=== PATIENT | female | born 1950 | race Caucasian/White ===

== ENCOUNTER 2017-09-27 16:13 | Outpatient (CLI) | payer OTHER, MEDICARE ==
--- NOTE | 2017-09-28 09:03 | XRAY Report ---
THREE VIEW LUMBAR SPINE: 09/27/2017 CLINICAL INDICATION: Low back pain. FINDINGS: AP, lateral, coned down views of the lumbar spine demonstrate normal height and alignment of the vertebral bodies. The disk spaces are preserved. There is no evidence of fracture. The bowel gas pattern is normal. Surgical changes of cholecystectomy are noted. IMPRESSION: NORMAL LUMBAR SPINE. TD: 09/28/2017 09:02
== END 2017-09-27 16:14 | disposition home or self-care (01) ==
LOC: DI.N 16:13
PROVIDERS: ATTEND Internal Medicine
DX: M54.5 Low back pain (principal)
CPT/HCPCS: 72100

== ENCOUNTER 2017-11-08 10:06 | Outpatient (CLI) | payer OTHER, MEDICARE ==
--- NOTE | 2017-11-08 11:22 | XRAY Report ---
TWO VIEW CHEST: 11/08/2017 CLINICAL INDICATION: Bronchitis. COMPARISON: 11/18/2014. FINDINGS: Frontal and lateral views of the chest demonstrate a normal cardiac silhouette. The lungs are clear. No effusion or pneumothorax is present. IMPRESSION: NORMAL CHEST. TD: 11/08/2017 11:21
== END 2017-11-08 10:07 | disposition home or self-care (01) ==
LOC: DI.N 10:06
PROVIDERS: ATTEND Family Medicine
DX: J40 Bronchitis, not specified as acute or chronic (principal)
CPT/HCPCS: 71046

== ENCOUNTER 2020-01-17 17:13 | Outpatient (CLI) | payer MEDICARE, OTHER ==
--- NOTE | 2020-01-18 09:06 | XRAY Report ---
PROCEDURE: Shoulder 3 View LT INDICATIONS: Osteoarthritis TECHNIQUE: 3 views of the shoulder were acquired. COMPARISON: None. FINDINGS: Bones: No fractures or dislocations. No suspicious bony lesions. Visualized ribs appear intact. Mo derate degenerative changes of the acromioclavicular and glenohumeral joints with prominent inferior glenohumeral osteophyte. Soft tissues: No suspicious soft tissue calcifications. IMPRESSION: Left shoulder without acute radiographic abnormalities. Degenerative changes of the left acromioclavicular and glenohumeral joints. Reviewed by: Howard Walters MD on 01/18/2020 9:04 AM PDT Approved by: Howard Walters MD on 01/18/2020 9:04 AM PDT Station ID: [id number]
--- NOTE | 2020-01-18 09:08 | XRAY Report ---
PROCEDURE: Knee 3 View LT INDICATIONS: OSTEOARTHRITIS TECHNIQUE: 3 views of the left knee(s) were acquired. COMPARISON: None. FINDINGS: Bones: No fractures or dislocations. No suspicious bony lesions. Mild tricompartmental osteoarthro sis of the left knee. No significant joint space loss visualized. Soft tissues: No joint effusion. No suspicious soft tissue calcifications. IMPRESSION: Left knee without acute radiographic abnormalities. Mild tricompartmental osteoarthritis of the left knee. Reviewed by: Howard Walters MD on 01/18/2020 9:06 AM PDT Approved by: Howard Walters MD on 01/18/2020 9:06 AM PDT Station ID: [id number]
== END 2020-01-17 17:14 | disposition home or self-care (01) ==
LOC: DI 17:13
PROVIDERS: ATTEND Internal Medicine
DX: M19.012 Primary osteoarthritis, left shoulder (principal); M17.12 Unilateral primary osteoarthritis, left knee

== ENCOUNTER 2020-06-25 13:39 | Outpatient (CLI) | payer MEDICARE, OTHER ==
--- NOTE | 2020-06-25 14:37 | DEXA Report ---
PROCEDURE: Dexa Spine and/or Hip INDICATIONS: DISORDER OF BONE DENSITY TECHNIQUE: Dual energy x-ray absorptiometry (DXA) was performed on a [employer] System. Regions measur ed are the AP Spine, femoral neck, and if needed forearm. COMPARISON: None. FINDINGS: Lumbar Spine: Bone Mineral Density 1.090 g/cm/cm,T score -0.8 Hip: Bone Mineral Density 0.982 g/cm/cm,T score -0.2 Femoral Neck: Bone Mineral Density 0.841 g/cm/cm, T score -1.4 (T score greater or equal to -1.0: NORMAL) (T score from -1.1 to -2.4: OSTEOPENIA) (T score less than or equal to -2.5 to: OSTEOPOROSIS) Impression: Based on WHO criteria, the patient is osteopenic. Compared with the last exam dated 07/04, there is no significant change. Patients with diagnosis of osteoporosis or osteopenia should have regular bone mineral density assess ment. For those eligible for Medicare, routine testing is allowed once every 2 years. Testing frequ ency can be increased for patients who have rapidly progressing disease or for those who are receivin g medical therapy to restore bone mass. Reviewed by: Suellen Winter MD on 06/25/2020 2:36 PM PST Approved by: Suellen Winter MD on 06/25/2020 2:36 PM PST Station ID: [id number]
== END 2020-06-25 13:40 | disposition home or self-care (01) ==
LOC: DI 13:39
PROVIDERS: ATTEND Internal Medicine
DX: M85.88 Other specified disorders of bone density and structure, other site (principal)

== ENCOUNTER 2020-07-01 15:08 | Outpatient (CLI) | payer MEDICARE, OTHER ==
--- NOTE | 2020-07-02 09:06 | Mammography Report ---
BILATERAL DIGITAL SCREENING MAMMOGRAM 3D/2D: 07/01/2020 CLINICAL: Family history of breast cancer. Routine screening. Comparison is made to exams dated: 07/19/2016 mammogram and 06/05/2014 mammogram - [facility]. There are scattered fibroglandular elements in both breasts. There is a benign calcification in the left breast. No significant masses, calcifications, or other findings are seen in either breast. There has been no significant interval change. IMPRESSION: BENIGN There is no mammographic evidence of malignancy. A 1 year screening mammogram is recommended. This exam was interpreted at Station ID: [id number]. NOTE: For mammograms, a report in lay terms will be sent to the patient. Approximately 15% of breast malignancies will not be visualized mammographically. In the management of a palpable breast mass, a negative mammogram must not discourage biopsy of a clinically suspicious lesion. Electronically Signed By: Ana yanez/constance:07/01/2020 18:00:30 ACR BI-RADS Category 2: Benign Finding(s) 3342F PARENCHYMAL PATTERN: (A) - The breast(s) demonstrate(s) scattered fibroglandular densities. BI-RADS CATEGORY: (2) - 2 RECOMMENDATION: (ANNUAL) - Recommend routine annual screening mammography. [id number] 1 year screening LATERALITY: (B)
== END 2020-07-01 15:09 | disposition home or self-care (01) ==
LOC: DI.N 15:08
PROVIDERS: ATTEND Internal Medicine
DX: Z12.31 Encounter for screening mammogram for malignant neoplasm of breast (principal); Z80.3 Family history of malignant neoplasm of breast

== ENCOUNTER 2021-10-01 14:02 | Outpatient (CLI) | payer MEDICARE, OTHER ==
--- NOTE | 2021-10-01 15:52 | XRAY Report ---
PROCEDURE: Hip w/Pelvis 2-3V LT INDICATIONS: LEFT HIP PAIN TECHNIQUE: AP pelvis with lateral view(s) of the left hip(s). COMPARISON: None. FINDINGS: Bones: No fractures or dislocations. Mild to moderate bilateral hip joint osteoarthritic changes are seen. No evidence of avascular necrosis of femoral head. Pelvic ring appears intact. No suspicious bony lesions. Soft tissues: The visualized bowel gas pattern is normal. No suspicious soft tissue calcifications. IMPRESSION: Symmetric appearing mild to moderate bilateral hip joint osteoarthritis. No hip fracture or dislocation. No evidence of avascular necrosis. Reviewed by: Tyson Jo MD on 10/01/2021 3:51 PM PST Approved by: Tyson Jo MD on 10/01/2021 3:51 PM PST Station ID: [id number]
== END 2021-10-01 14:03 | disposition home or self-care (01) ==
LOC: DI.N 14:02
PROVIDERS: ATTEND Internal Medicine
DX: M16.0 Bilateral primary osteoarthritis of hip (principal)

== ENCOUNTER 2022-08-03 09:05 | Outpatient (CLI) | payer MEDICARE, OTHER ==
--- NOTE | 2022-08-03 10:01 | DEXA Report ---
PROCEDURE: Dexa Spine and/or Hip INDICATIONS: POST MENOPAUSAL TECHNIQUE: Dual energy x-ray absorptiometry (DXA) was performed on a [employer] System. Regions measur ed are the AP Spine, femoral neck, and if needed forearm. COMPARISON: DEXA, 06/25/2020.. FINDINGS: Lumbar Spine: Bone Mineral Density 1.055 g/cm/cm,T score -1.0, osteopenia. Left Femoral Neck: Bone Mineral Density 0.822 g/cm/cm, T score -1.6, osteopenia. Left Hip: Bone Mineral Density 0.956 g/cm/cm,T score -0.4, normal. (T score greater or equal to -1.0: NORMAL) (T score from -1.1 to -2.4: OSTEOPENIA) (T score less than or equal to -2.5 to: OSTEOPOROSIS) Impression: 1. Based on WHO criteria, the patient has osteopenia. 2. Compared to the last exam dated 06/25/2020, the patient's bone mineral density in lumbar spine has decreased by 3.2%. Her bone mineral density in left hip is not significantly changed. Patients with diagnosis of osteoporosis or osteopenia should have regular bone mineral density assess ment. For those eligible for Medicare, routine testing is allowed once every 2 years. Testing frequ ency can be increased for patients who have rapidly progressing disease or for those who are receivin g medical therapy to restore bone mass. Reviewed by: Suellen Winter MD on 08/03/2022 10:00 AM [facility] Approved by: Suellen Winter MD on 08/03/2022 10:00 AM PST Station ID: [id number]
== END 2022-08-03 09:06 | disposition home or self-care (01) ==
LOC: DI 09:05
PROVIDERS: ATTEND Internal Medicine
DX: M85.89 Other specified disorders of bone density and structure, multiple sites (principal)

== ENCOUNTER 2022-08-03 09:05 | Outpatient (CLI) | payer MEDICARE, OTHER ==
--- NOTE | 2022-08-04 10:35 | Mammography Report ---
BILATERAL DIGITAL SCREENING MAMMOGRAM 3D/2D: 08/03/2022 CLINICAL: Routine screening. Family history of breast cancer. Comparison is made to exams dated: 07/01/2020 mammogram, 07/19/2016 mammogram, and 06/05/2014 mammogr am - [facility]. There are scattered areas of fibroglandular density in both breasts (category b / 25%-50% glandular t issue). There is a benign calcification in the left breast. No significant masses, calcifications, or other findings are seen in either breast. There has been no significant interval change. IMPRESSION: BENIGN There is no mammographic evidence of malignancy. A 1 year screening mammogram is recommended. Based on the Tyrer Cuzick model (a risk assessment model) the patients lifetime risk is 7.1% and her 10 year risk is 4.5%. According to the ACR, ACS, and NCCN guidelines, an annual breast MRI exam reina g with mammogram is recommended if the patients lifetime risk is 20% or greater. This exam was interpreted at Station ID: [id number]. NOTE: For mammograms, a report in lay terms will be sent to the patient. Approximately 15% of breast malignancies will not be visualized mammographically. In the management of a palpable breast mass, a negative mammogram must not discourage biopsy of a clinically suspicious lesion. Electronically Signed By: Howard cordoba/constance:08/03/2022 10:08:06 ACR BI-RADS Category 2: Benign Finding(s) 3342F PARENCHYMAL PATTERN: (A) - The breast(s) demonstrate(s) scattered fibroglandular densities. BI-RADS CATEGORY: (2) - 2 RECOMMENDATION: (ANNUAL) - Recommend routine annual screening mammography. [id number] 1 year screening LATERALITY: (B)
== END 2022-08-03 09:06 | disposition home or self-care (01) ==
LOC: DI 09:05
PROVIDERS: ATTEND Internal Medicine
DX: Z12.31 Encounter for screening mammogram for malignant neoplasm of breast (principal); Z80.3 Family history of malignant neoplasm of breast

== ENCOUNTER 2023-10-18 08:14 | Outpatient (CLI) | payer MEDICARE, OTHER ==
--- NOTE | 2023-10-19 09:56 | Mammography Report ---
BILATERAL DIGITAL SCREENING MAMMOGRAM 3D/2D: 10/18/2023 CLINICAL: Routine screening. Comparison is made to exams dated: 08/03/2022 mammogram, 07/01/2020 mammogram, and 07/19/2016 mammogra m - [facility]. There are scattered areas of fibroglandular density in both breasts (category b / 25%-50% glandular t issue). There is a benign calcification in the left breast. No significant masses, calcifications, or other findings are seen in either breast. There has been no significant interval change. IMPRESSION: BENIGN There is no mammographic evidence of malignancy. A 1 year screening mammogram is recommended. Based on the Tyrer Cuzick model (a risk assessment model) the patient's lifetime risk is 8.3% and her 10 year risk is 5.7%. According to the ACR, ACS, and NCCN guidelines, an annual breast MRI exam reina g with mammogram is recommended if the patient's lifetime risk is 20% or greater. This exam was interpreted at Station ID: [id number]. NOTE: For mammograms, a report in lay terms will be sent to the patient. Approximately 15% of breast malignancies will not be visualized mammographically. In the management of a palpable breast mass, a negative mammogram must not discourage biopsy of a clinically suspicious lesion. Electronically Signed By: Viraj vazquez/constance:10/18/2023 12:38:57 letter sent: No_Letter ACR BI-RADS Category 2: Benign Finding(s) 3342F PARENCHYMAL PATTERN: (A) - The breast(s) demonstrate(s) scattered fibroglandular densities. BI-RADS CATEGORY: (2) - 2 RECOMMENDATION: (ANNUAL) - Recommend routine annual screening mammography. [id number] 1 year screening LATERALITY: (B)
== END 2023-10-18 08:15 | disposition home or self-care (01) ==
LOC: DI 08:14
PROVIDERS: ATTEND Internal Medicine
DX: Z12.31 Encounter for screening mammogram for malignant neoplasm of breast (principal); R92.323 Mammographic fibroglandular density, bilateral breasts